=== PATIENT | female | born 1965 | race Caucasian/White ===

== ENCOUNTER 2020-05-06 08:20 | Emergency (ER) | payer BC, SELFPAY ==
--- NOTE | ~2020-05-06 | CT_ITS ---
EXAMINATION: CTA chest PE protocol EXAM DATE: 05/06/2020 10:27 INDICATION: dyspnea dyspnea, COVID+ today. TECHNIQUE: Spiral CTA of the chest (pulmonary arteries) was performed with 100 cc Omnipaque 350 intr avenous contrast injection. Images were acquired during the pulmonary arterial phase. Coronal maxi mum intensity projection 3D-reconstructions were created by the technologist on dedicated workstation . Axial, coronal and sagittal reformatted images were reviewed. The dose-length product (DLP) for t his examination was 271.88 mGy-cm. The exposure was tailored according to patient size (auto mA exp osure control), and iterative reconstruction (ASIR) was used as additional dose reduction technique. There is no prior study for comparison. FINDINGS: Pulmonary arteries are well opacified and without intraluminal filling defects. No thora cic aortic dissection. There is basilar linear atelectasis. No groundglass opacities. There are no pleural or pericardial effusions. Tracheobronchial tree is patent. There is no mediastinal, hilar or axillary lymphadenopathy. There is no pneumothorax. Heart normal in size. No evidence of co ronary arterial calcification. Upper abdomen is unremarkable. There is thoracic spondylosis withou t osteoblastic or osteolytic lesions identified. IMPRESSION: 1. Linear by basilar atelectasis. 2. No pulmonary emboli or groundglass opacities. Reviewed, dictated and finalized at location A. 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
--- NOTE | ~2020-05-06 | XR_ITS ---
EXAMINATION: XR chest 1V portable DATE: 05/06/2020 08:43 INDICATION: Chest pain. TECHNIQUE: A single frontal view of the chest was obtained. COMPARISON: Chest 2 views 05/14/2011 FINDINGS: There is mild atelectasis in the lower lung zones. There is a small left pleural effusion. No pneumothorax. The heart size is normal. IMPRESSION: 1. Small left pleural effusion. 2. Mild atelectasis in the lower lung zones. Reviewed, dictated and finalized at location B. 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
[2020-05-06 08:20] VITALS: BP 140/84; PULSE 89; RESP 15; TEMP 37.3; O2SAT 97
--- NOTE | 2020-05-06 08:23 | ECG_ITS ---
Measurements Intervals [place] Rate: 80 P: 31 VT: 163 QRS: 16 QRSD: 96 T: 32 QT: 366 QTc: 423 Interpretive Statements SINUS RHYTHM INCOMPLETE RIGHT BUNDLE BRANCH BLOCK BORDERLINE T WAVE ABNORMALITY- ANTERIOR LEADS BORDERLINE ECG Electronically Signed On 05-06-2020 8:32:46 CASING FLUSHER by Kingsley Tucker D.O.
--- NOTE | 2020-05-06 08:29 | ED.AMS ---
HPI - Altered Mental Status General Chief Complaint: Weakness Stated Complaint: unresponsive Time Seen by Provider: 05/06/20 08:23 Source: patient and family Mode of arrival: wheelchair Limitations: altered mental status History of Present Illness HPI narrative: 55-year-old woman comes in today complaining of weakness, achiness, and diarrhea that started 2 days ago. Patient states that she has had no fever, vomiting, cough or chest pain however she has had some shortness of breath more recently. She states that she took some laxatives for constipation problem as well. She has no history of cardiac or lung disease. MD complaint: altered mental status Timing confirmed by: spouse Severity: moderate Consistency of symptoms: waxing and waning Associated symptoms: chills, nausea/vomiting and diarrhea Related Data Home Medications Medication Instructions Recorded Confirmed escitalopram oxalate 20 mg PO DAILY 05/06/20 05/06/20 Allergies Allergy/AdvReac Type Severity Reaction Status Date / Time Sulfa (Sulfonamide Allergy Unknown Verified 10/13/19 14:27 Antibiotics) Review of Systems Constitutional: Constitutional: Reports chills, Reports fatigue, Denies fever(s) and Reports weakness Eyes: Eyes: Denies change in vision and Denies photophobia ENT: Denies dysphagia, Denies nasal congestion and Denies sore throat Cardiovascular: Cardiovascular: Denies chest pain and Denies radiating jaw, neck or arm pain Respiratory: Respiratory: Denies cough, Reports dyspnea and Denies wheezing Gastrointestinal: Gastrointestinal: Denies abdominal pain, Reports constipation, Reports diarrhea, Reports nausea and Denies vomiting Genitourinary: Genitourinary: Denies nocturia and Denies dysuria Musculoskeletal: Musculoskeletal: Denies arthralgias and Denies joint swelling Integumentary/Breasts: Skin/Breast: Denies pruritus, Denies erythema and Denies rash Neurologic: Denies vertigo, Denies dizziness and Denies syncope Hematologic/Lymphatic: Hematologic/Lymphatic: Denies easy bleeding and Denies easy bruising Allergic/Immunologic: Allergic/Immunologic: Denies lip swelling and Denies throat swelling PMFSH Past Medical History Medical History Anxiety Social History Social History (Updated 05/06/20 @ 09:45 by Yang Gerard MD) Smoking status: Never smoker Substance use: never Living arrangements: with family Exam Const: General: healthy appearing Nutritional Appearance: obese Limitations: altered mental status Other: Mild acute distress. Somnolent. HENMT: Ears: external ears normal, TM's normal bilaterally and EAC's normal General nose exam: Normal nares present Face and sinus: normal facial exam Mouth: Yes moist mucous membranes Throat: posterior oropharynx normal Eyes: Conjunctivae: conjunctivae normal Pupils: Equal, round and reactive pupils present EOM: EOMs intact bilaterally Resp: Effort & Inspection: normal respiratory effort, not labored and tachypneic (mildly) Auscultation: clear to auscultation bilaterally, no rales, no rhonchi and no wheezes Cardio: Rate: regular rate Rhythm: regular rhythm Heart sounds: no murmurs GI: GI Palp: Yes Soft to palpation, No Tenderness to palpation present (GI) and No Guarding due to palpation present (GI) Auscultation: normal bowel sounds Skin: General skin exam: normal color, no jaundice and no pallor Rashes: no rashes Neuro: General: patient oriented x3, moves all extremities and no focal motor deficits Cranial nerves: Yes Nystagmus not present Speech: normal speech Gait exam (Neuro): Normal gait present Extrem: General: normal to inspection and no clubbing, cyanosis or edema Psych: Appearance: grossly normal Mental Status: mental status grossly normal Affect: normal affect Attitude: cooperative Thought content: Yes Normal thought content present Course Course Emergency Course: On re-exa
[2020-05-06 08:45] LABS: Hematocrit 37.1 % (35.0-49.0); Hemoglobin 12.5 g/dL (12.0-15.0); Mean Corpuscular HGB Conc 33.7 g/dL (32.0-36.0); Mean Corpuscular Hemoglobin 31.9 pg (27.0-31.0); Mean Corpuscular Volume 94.6 fL (78.0-102.0); Mean Platelet Volume 10.3 fl (9.2-11.8); Platelet Count Result 215 K/mm3 (150-420); Red Blood Count 3.92 M/mm3 (4.20-5.40); Red Cell Distribution Width 12.5 % (11.6-14.4); White Blood Count 3.9 K/mm3 (4.8-10.8)
[2020-05-06 08:47] LABS: Add Urine Microscopic? NO; Appearance Urine Clear (Clear); Bilirubin Urine Negative (Negative); Blood Urine Negative (Negative); Color Urine Yellow (Yellow); Glucose Urine UA Negative (Negative); Ketones Urine Negative (Negative); Leukocyte Esterase Ur Negative LEU/UL (Negative); Nitrate Urine Negative (Negative); Protein Urine Negative (Negative); Specific Grav Ur 1.025 (1.010-1.020); Urobilinogen Urine 0.2 mg/dL (0.2-1.0); pH Urine 5.5 (5.0-8.0)
[2020-05-06 08:56] LABS: Amphetamine Screen Urine Negative (Negative); Barbiturate Screen Urine Negative (Negative); Benzodiazepines Screen Urine Negative (Negative); Cannabinoid Screen Urine Negative (Negative); Cocaine Screen Urine Negative (Negative); Methadone Screen Urine Negative (Negative); Opiate Screen Urine Negative (Negative); Phencyclidine Screen Urine Negative (Negative)
[2020-05-06 09:00] LABS: INR 0.9; Partial Thromboplastin Time 25.1 SEC (23.90-30.70); Prothrombin Time 10.4 Seconds (9.50-12.10)
[2020-05-06 09:01] LABS: Base Excess ABG -0.2 mmol/L (0-2); Carboxyhemoglobin 0.2 % (0-1.5); HCO3 ABG 22.8 mmol/L (23-29); Methemoglobin ABG 0.3 % (0-1.5); Oxygen Content ABG 16.6 %vol (16.0-22.0); Oxygen Saturation ABG 96.7 % (95-97); Oxyhemoglobin 96.2 % (94-100); Reduced Hemoglobin 3.3 % (0-1.5); Total Hemoglobin 12.2 g/dL; pH ABG 7.47 (7.35-7.45)
[2020-05-06 09:02] LABS: Device ROOM AIR; Modified Allen's Test Pass; Site Drawn LEFT RADIAL
[2020-05-06 09:02] LABS: D Dimer 1.57 mg/L (0.19-0.50)
[2020-05-06 09:06] LABS: Band Neutrophils Percent 0 % (0-6); Lymphocytes Absolute Manual 1.05 K/mm3 (1.1-4.5); Lymphocytes Percent Manual 27 % (18-44); Monocytes Absolute Manual 0.54 K/mm3 (0.1-0.90); Monocytes Percent Manual 14 % (3-9); Neutrophils Percent Manual 59 % (46-73); Platelet Estimate Adequate (Adequate); Total Cells Counted 100
[2020-05-06 09:06] LABS: Influenza Control Valid (Valid)
[2020-05-06 09:07] LABS: SARS-CoV-2 Ag Positive (Negative)
[2020-05-06 09:07] LABS: Alanine Aminotransferase 21 U/L (14-59); Albumin Level 3.9 g/dL (3.4-5.0); Alkaline Phosphatase 81 U/L (46-116); Anion Gap 5 mmol/L (8-16); Aspartate Amino Transferase 16 U/L (15-37); Bilirubin,Total 0.4 mg/dL (0.00-1.00); Blood Urea Nitrogen 9 mg/dL (7-18); Calcium 8.7 mg/dL (8.5-10.1); Carbon Dioxide 28 mmol/L (21-32); Chloride 103 mmol/L (98-108); Estimated Glomerular Filt Rate > 60; Glucose 97 mg/dL (70-99); Osmolality Calculated 280 mOsm/kg (285-295); Potassium 3.8 mmol/L (3.5-5.1); Sodium 136 mmol/L (136-145); Total Protein 7.6 g/dL (6.4-8.2); Troponin I 7.1 ng/L (0.00-60.4)
[2020-05-06 09:12] LABS: Lactic Acid Reflex 1.1 mmol/L (0.4-2.0)
[2020-05-06] MEDS: SODIUM CHLORIDE 0.9% IV 1,000 ML 999 ML IV CONT (09:16)
[2020-05-06 09:19] LABS: CRP 0.6 mg/dL (0.0-0.9)
[2020-05-06 09:24] LABS: BNP 33 pg/mL (0-100)
[2020-05-06 09:30] LABS: Glucose Point of Care 93 (65-105)
[2020-05-06 10:17] VITALS: BP 127/75; PULSE 77; O2SAT 96
[2020-05-06 11:20] VITALS: BP 131/71; PULSE 71; O2SAT 97
== END 2020-05-06 11:20 | disposition home or self-care (01) ==
PROVIDERS: Emergency Provider Emergency Medicine
DX: U07.1 COVID-19 (principal)
CPT/HCPCS: 36415; 36600; 71045; 71275; 80053; 80307; 81003; 82375; 82805; 83050; 83605; 83880; 84484; 85025; 85380; 85610; 85730; 86140; 87040; 87086; 87426; 87804; 93005; 96360; 96361; 99283; 99284; C9803; J7030; Q9967

== ENCOUNTER 2021-07-26 21:43 | Emergency (ER) | payer BC, SELFPAY ==
--- NOTE | ~2021-07-26 | XR_ITS ---
EXAMINATION: XR hand LT min 3V EXAM DATE: 07/26/2021 22:11 INDICATION: Swelling/pain x5days @distal 2nd, 3rd metacarpals after pop. TECHNIQUE: Left hand frontal, lateral and oblique projections obtained and reviewed. There is no carolyn or study for comparison. FINDINGS: Left metacarpal bones are unremarkable. There are no acute fractures or dislocations ident ified. There is no subcutaneous gas. There is soft tissue swelling over the metacarpal heads. Ther e are no radiopaque foreign bodies. IMPRESSION: 1. XR hand LT min 3V exam without acute osseous findings. 2. Soft tissue swelling. Reviewed, dictated and finalized at location A.
[2021-07-26 21:59] VITALS: BP 115/71; PULSE 64; RESP 18; TEMP 36.1; O2SAT 97
[2021-07-26] MEDS: IBUPROFEN 400 MG TABLET 800 MG PO (22:17)
--- NOTE | 2021-07-26 22:25 | ED.UPPEXIN ---
HPI - Extremity Injury (Upper) General Chief Complaint: Extremity Injury, Upper Stated Complaint: left hand pain Time Seen by Provider: 07/26/21 21:45 Source: patient and RN notes reviewed Mode of arrival: ambulatory Limitations: no limitations History of Present Illness complaint: injury to: left and hand Onset (ago): day(s) (5) Other Extremity Injury: Left: hand Place: home Severity: mild Severity scale (1-10): 3 Relieving factors: immobilization Exacerbating factors: movement of extremity Context: direct blow Associated symptoms: heard/felt popping sensation Related Data Home Medications Medication Instructions Recorded Confirmed escitalopram oxalate 20 mg PO DAILY 05/06/20 07/26/21 Allergies Allergy/AdvReac Type Severity Reaction Status Date / Time Sulfa (Sulfonamide Allergy Unknown Verified 10/13/19 14:27 Antibiotics) Review of Systems Review of Systems: All systems reviewed & are unremarkable except as noted in HPI and below PMFSH Past Medical History Medical History Anxiety Sprain and strain of left hand Social History Social History Smoking status: Never smoker Substance use: never Exam Const: General: no acute distress Nutritional Appearance: well nourished Orientation/consciousness: patient oriented x3 Limitations: no limitations HENMT: Head: normal to inspection Ears: external ears normal, TM's normal bilaterally and EAC's normal General nose exam: Normal external nose present and Normal nares present Mouth: Yes moist mucous membranes Eyes: Conjunctivae: conjunctivae normal Pupils: Equal, round and reactive pupils present EOM: EOMs intact bilaterally Neck: Neck: normal visual inspection and no lymphadenopathy Resp: Effort & Inspection: normal respiratory effort Auscultation: clear to auscultation bilaterally Cardio: Rate: regular rate Rhythm: regular rhythm GI: GI Palp: Yes Soft to palpation and No Tenderness to palpation present (GI) Auscultation: normal bowel sounds : General: Yes bladder normal to palpation and Yes no CVA tenderness Back/Spine/Pelvis: Back: no CVA tenderness Skin: General skin exam: normal color Rashes: no rashes Neuro: General: patient oriented x3, moves all extremities, no meningeal signs, no focal motor deficits and CN's II-XI intact bilaterally Extrem: General: no pedal edema Other: minimally swollen left hand dorsum MCP 3rd and 4th. no acute redness or deformity. Psych: Appearance: grossly normal and well kempt Mental Status: mental status grossly normal Thought content: Yes Normal thought content present Course Course Emergency Course: Pt was stable in the ED. less pain-ful. Reevaluation(s) Date: 07/26/21 Time: 22:13 Vital Signs Vital signs: Vital Signs Temperature 36.1 C L 07/26/21 21:59 Pulse Rate 64 07/26/21 21:59 Respiratory Rate 18 07/26/21 21:59 Blood Pressure 115/71 07/26/21 21:59 Pulse Oximetry 97 07/26/21 21:59 Temperature 36.1 C L 07/26/21 21:59 Pulse Rate 64 07/26/21 21:59 Respiratory Rate 18 07/26/21 21:59 Blood Pressure 115/71 07/26/21 21:59 Pulse Oximetry 97 07/26/21 21:59 MDM - Extremity Injury (Upper) Differential Diagnosis Differential diagnosis: Likely finger sprain Medical Records Attestation: I reviewed the patient's medical records. Lab Data Attestation: I reviewed the patient's lab results. Imaging Data Radiologist's impression: see the report Critical Care Time Critical Care Time Critical Care Time: No Total Critical Care Time: 0 Discharge Plan Discharge Clinical Impression: Sprain and strain of left hand Patient Disposition: Home, Self-Care Condition: Stable Instructions: Antibiotic Form, How to Use a Sling (ED) Additional Instructions: Home. May RTC prn. PMD in 1-2 days. Rx below. Moist heat. Prescriptions: New
[2021-07-26 23:41] VITALS: BP 120/74; PULSE 74; RESP 18; O2SAT 98
== END 2021-07-26 23:44 | disposition home or self-care (01) ==
PROVIDERS: Emergency Provider Emergency Medicine; PCP Family Medicine
DX: S63.92XA Sprain of unspecified part of left wrist and hand, initial encounter (principal)
CPT/HCPCS: 73130; 99283; A4565; A9270

== ENCOUNTER 2021-10-17 07:15 | Outpatient (CLI) | payer BC, SELFPAY ==
--- NOTE | ~2021-10-17 | US_ITS ---
EXAMINATION: US pelvic complete w TV DATE: 10/17/2021 08:22 INDICATION: Pelvic pain Comparison:No prior studies for comparison. TECHNIQUE: Multiple transabdominal and endovaginal sonographic images of the pelvis performed. FINDINGS: The uterus is surgically absent. The left ovary is not identified. Right ovary is normal me asuring 12 x 6 x 9 mm.. No free fluid. IMPRESSION: 1. Unremarkable pelvic ultrasound post hysterectomy. Reviewed, dictated and finalized at location A.
--- NOTE | ~2021-10-17 | MM_ITS ---
EXAMINATION: MM scrn wendy implant BI w sly HISTORY: Screening mammogram TECHNIQUE: Craniocaudal and mediolateral oblique 3-D tomosynthesis images with implant displacement a nd synthetic 2-D images were generated. Craniocaudal and mediolateral oblique views of the breasts wi thout implant displacement were obtained using full field digital mammography. CAD analysis was submi tted and interpreted. COMPARISON: No prior mammogram is available for comparison at this institution. BREAST PARENCHYMAL COMPOSITION: There are scattered areas of fibroglandular density. FINDINGS: There is no evidence of suspicious mass, calcification, or architectural distortion to sugg est malignancy in either breast. There has been no suspicious interval change. There are bilateral duggan bpectoral silicone implants. IMPRESSION: 1. No mammographic evidence of malignancy. 2. Recommend routine screening mammography in one year. BI-RADS Category 1: Negative Reviewed, dictated and finalized at location A.
== END 2021-10-17 07:16 | disposition home or self-care (01) ==
LOC: CHSIMG 07:16
PROVIDERS: PCP Family Medicine; Visit Provider Obstetrics & Gynecology
DX: Z12.31 Encounter for screening mammogram for malignant neoplasm of breast (principal); R35.0 Frequency of micturition; R10.2 Pelvic and perineal pain
CPT/HCPCS: 76830; 76856; 77063; 77067

== ENCOUNTER 2021-11-25 07:55 | Outpatient (CLI) | payer BC, SELFPAY ==
--- NOTE | ~2021-11-25 | CT_ITS ---
EXAMINATION: CT abdomen pelvis w con DATE: 11/25/2021 08:30 INDICATION: Left groin pain. TECHNIQUE: Computed tomography (CT) of the abdomen and pelvis was performed with 100 mL Omnipaque 350 intravenous contrast. Automated exposure control and iterative reconstruction technique were employe d. The dose-length product was 343.99 mGy-cm. COMPARISON: Chest CT 05/06/2020 FINDINGS: The visualized portions of the lung bases demonstrated mild atelectasis. No pleural effusio n. The heart size is normal. No pericardial effusion. There are bilateral breast implants. The liver is normal. The gallbladder is contracted. There are gallstones in the gallbladder. 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 The spleen, pancreas, adrenal glands, and right kidn ey are normal. There is an 11 mm cyst in left kidney. There are bilateral inguinal hernias containing fat. The appendix is normal. There is an umbilical hernia containing fat. There are no pathologicall y enlarged lymph nodes. There is no free intraperitoneal fluid. There is mild thoracolumbar spondylos is. IMPRESSION: 1. Bilateral inguinal hernias containing fat. 2. Umbilical hernia containing fat. Reviewed, dictated and finalized at location A.
== END 2021-11-25 07:56 | disposition home or self-care (01) ==
LOC: CHSIMG 07:58
PROVIDERS: PCP Family Medicine
DX: K46.9 Unspecified abdominal hernia without obstruction or gangrene (principal)
CPT/HCPCS: 74177; Q9967

== ENCOUNTER 2022-01-30 20:41 | Emergency (ER) | payer BC, SELFPAY ==
--- NOTE | 2022-01-30 20:58 | ED.EXTPRO ---
HPI - Extremity Problem General Chief complaint: Extremity Injury, Lower Stated complaint: L ankle pain Time Seen by Provider: 01/30/22 20:57 Source: patient and RN notes reviewed Mode of arrival: wheelchair Limitations: no limitations History of Present Illness HPI Narrative: patient states she woke up this morning in her left ankle was in extreme pain. She is having trouble putting any weight on it. She does not recall any injury. She denies any trauma. She has not recently been on any antibiotics. MD Complaint: extremity pain and extremity swelling Onset (ago): hour(s) (14) Pain Consistency: constant Location: left and lower extremity Quality: burning, aching and constant Radiation: none Relieving factors: nothing Exacerbating factors: nothing Associated symptoms: denies other symptoms Related Data Home Medications Medication Instructions Recorded Confirmed escitalopram oxalate 20 mg tablet 20 mg PO DAILY 05/06/20 01/30/22 Allergies Allergy/AdvReac Type Severity Reaction Status Date / Time Sulfa (Sulfonamide Allergy Unknown Rash Verified 01/30/22 21:09 Antibiotics) egg Allergy Nausea Verified 01/30/22 21:09 Pork/Porcine Containing Allergy Vomiting Verified 01/30/22 21:09 Products Review of Systems Review of Systems: All systems reviewed & are unremarkable except as noted in HPI and below Constitutional: Constitutional: Denies chills and Denies fever(s) PMFSH Past Medical History Medical History (Updated 01/30/22 @ 21:44 by Terrance Steinberg MD) Anxiety GERD (gastroesophageal reflux disease) Sprain and strain of left hand Surgical History Surgical History (Updated 01/30/22 @ 21:36 by Terrance Steinberg MD) H/O oophorectomy single History of bilateral tubal ligation History of tonsillectomy History of total abdominal hysterectomy Social History Social History Smoking status: Never smoker Substance use: never Exam Const: General: healthy appearing, no acute distress and alert Nutritional Appearance: well nourished Orientation/consciousness: patient oriented x3 Limitations: no limitations HENMT: Head: normal to inspection Ears: external ears normal Eyes: Conjunctivae: conjunctivae normal Pupils: Equal, round and reactive pupils present EOM: EOMs intact bilaterally Neck: Neck: normal visual inspection Resp: Effort & Inspection: normal respiratory effort Auscultation: clear to auscultation bilaterally Cardio: Rate: regular rate Rhythm: regular rhythm GI: GI Palp: Yes Soft to palpation and No Tenderness to palpation present (GI) Auscultation: normal bowel sounds Back/Spine/Pelvis: Cervical Spine: cervical ROM normal Thoracic/Lumbar Spine: thoraco-lumbar ROM normal Skin: General skin exam: normal color Rashes: no rashes Neuro: General: patient oriented x3, moves all extremities, no focal motor deficits and CN's II-XI intact bilaterally Speech: normal speech Gait exam (Neuro): Normal gait present Extrem: General: normal exam except as noted Right lower extremity: ankle Details: tenderness Location: of the achilles tendon (severe), swelling Details: posteriorly ( over the Achilles tendon), abnormal ROM Details: pain with active ROM Details: with plantar flexion and with dorsiflexion and pain with passive ROM Details: with plantar flexion and with dorsiflexion and achilles tendon exam abnormal Details: tenderness to palpation of achilles tendon; Mccormick Test normal Psych: Mental Status: mental status grossly normal Affect: normal affect Attitude: cooperative Course Vital Signs Vital signs: Vital Signs Temperature 36.8 C 01/30/22 21:17 Pulse Rate 81 01/30/22 21:17 Respiratory Rate 18 01/30/22 21:17 Blood Pressure 109/60 01/30/22 21:17 Pulse Oximetry 97 01/30/22 21:17 Oxygen Delivery Room Air 01/30/22 21:17 Temperature 36.8 C 01/30/22 21:17 Pulse Rate 81 01/30/22 21:17 Respira
[2022-01-30 21:17] VITALS: BP 109/60; PULSE 81; RESP 18; TEMP 36.8; O2SAT 97
--- NOTE | 2022-01-30 21:53 | PC.NURSE ---
SPLINT PLACED ON LEFT FOOT [id number]
[2022-01-30] MEDS: methylPREDNISolone SOD SUCC 125 MG VIAL IM (21:56)
[2022-01-30 23:32] VITALS: BP 130/60; PULSE 66; RESP 18; TEMP 36.8; O2SAT 98
== END 2022-01-31 00:17 | disposition home or self-care (01) ==
PROVIDERS: Emergency Provider Emergency Medicine; PCP Family Medicine
DX: M76.62 Achilles tendinitis, left leg (principal)
CPT/HCPCS: 96372; 99283; J2930

== ENCOUNTER 2024-03-08 22:54 | Emergency (ER) | payer BC, SELFPAY ==
--- NOTE | ~2024-03-08 | XR_ITS ---
EXAMINATION: XR chest 1V portable DATE: 03/08/2024 23:11 INDICATION: Chest pain. TECHNIQUE: A single frontal view of the chest was obtained. COMPARISON: Chest single view 05/06/2020, CT abdomen and pelvis 11/25/2021 FINDINGS: There is mild elevation of right hemidiaphragm. No pneumonia, pleural effusion, or pneumoth orax. The heart size is normal. IMPRESSION: 1. No acute cardiopulmonary disease. Reviewed, dictated and finalized at location A. [facility] [employer]
[2024-03-08 22:54] VITALS: BP 121/65; PULSE 76; RESP 24; TEMP 36.3; O2SAT 98
[2024-03-08 23:02] VITALS: BP 129/63; PULSE 75; RESP 18; TEMP 36.3; O2SAT 100
--- NOTE | 2024-03-08 23:02 | ECG_ITS ---
Test Date: 2024-03-08 23:01:32 Measurements Intervals [place] Rate: 75 P: 64 [place]: 160 QRS: 58 QRSD: 89 T: 73 QT: 403 QTc: 450 Interpretive Statements SINUS RHYTHM POSSIBLE RIGHT VENTRICULAR CONDUCTION DELAY BORDERLINE T WAVE ABNORMALITY- ANTERIOR LEADS BASELINE ARTIFACT- I, II, III, V2, V4-V6 BORDERLINE ECG No previous ECG available for comparison Electronically Signed On 03-09-2024 05:24:37 MANAGER ETL by Kingsley Tucker D.O.
--- NOTE | 2024-03-08 23:02 | ED.CHESTPAIN ---
HPI - Chest Pain General Chief Complaint: Chest Pain Stated Complaint: chest pain Source: patient Mode of arrival: ambulatory Limitations: no limitations History of Present Illness HPI narrative: 59-year-old female with a history of anxiety, GERD, negative stress test 2 months ago presents to the ED with a 30 minute history of -- acute onset set substernal chest pain which was unprovoked and radiated to the back. She also complains of numbness of left upper extremity. No nausea /vomiting. No shortness of breath. The patient received aspirin and sublingual nitro by EMS without any significant change in the pain. -- The patient is very anxious and shaky patient is a nonsmoker without any history of hypertension, dyslipidemia or family history of coronary artery disease. MD complaint: chest pain Onset (ago): minute(s) ( 30 minutes) Timing of current episode: constant Prior episodes: No Onset: during rest Pain location: substernal Pain radiation: left arm and back Severity: severe Pain scale (0-10): 8 Quality: aching Relieving factors: nothing Exacerbating factors: nothing Risk Factors Coronary artery disease risk factors: none Thoracic aortic dissection risk factors: none Related Data On Oral Contraceptives: No Home Medications Medication Instructions Recorded Confirmed escitalopram oxalate 20 mg tablet 20 mg PO DAILY 05/06/20 03/08/24 Allergies Allergy/AdvReac Type Severity Reaction Status Date / Time Sulfa (Sulfonamide Allergy Unknown Rash Verified 01/30/22 21:09 Antibiotics) egg Allergy Nausea Verified 01/30/22 21:09 Pork/Porcine Containing Allergy Vomiting Verified 01/30/22 21:09 Products Review of Systems Review of Systems: All systems reviewed & are unremarkable except as noted in HPI and below Constitutional: Constitutional: Reports as per HPI and Reports no additional constitutional complaints Eyes: Eyes: Reports as per HPI and Reports no additional eye complaints ENT: Reports system reviewed and no additional complaints, except as documented and Reports as per HPI Cardiovascular: Cardiovascular: Reports as per HPI, Reports no additional cardiovascular complaints, Reports chest pain and Reports radiating jaw, neck or arm pain Respiratory: Respiratory: Reports as per HPI and Reports no additional respiratory complaints Gastrointestinal: Gastrointestinal: Reports as per HPI and Reports no additional gastrointestinal complaints Genitourinary: Genitourinary: Reports no additional female genitourinary complaints and Reports as per HPI Musculoskeletal: Musculoskeletal: Reports no additional musculoskeletal complaints and Reports as per HPI Integumentary/Breasts: Skin/Breast: Reports system reviewed and no additional complaints, except as docu and Reports as per HPI Neurologic: Reports system reviewed and no additional complaints, except as documented and Reports as per HPI Psychiatric: Psychiatric: Reports no additional psychiatric complaints and Reports as per HPI Endocrine: Endocrine: Reports no additional endocrine complaints and Reports as per HPI Hematologic/Lymphatic: Hematologic/Lymphatic: Reports no additional hematologic/lymphatic complaints and Reports as per HPI Allergic/Immunologic: Allergic/Immunologic: Reports no additional allergic/immunologic complaints and Reports as per HPI [facility] Past Medical History Medical History Anxiety GERD (gastroesophageal reflux disease) Sprain and strain of left hand Surgical History Surgical History H/O oophorectomy single History of bilateral tubal ligation History of tonsillectomy History of total abdominal hysterectomy Social History Social History Smoking status: Never smoker Substance use: never Living arrangements: with family Exam Narrative: Vitals are stable oxygen saturation of 100% on room air with a respiratory rate of 18. Const: Orientation/consciousness: patient oriented x3 Other: Anxious with hyperventilation HENMT: Head: normal to inspection Ears: external ears normal Face/Nose/Sinus: Normal external nose present Face and sinus: normal facial exam Mouth: Yes Normal oral and palatal mucosa present Throat: posterior oropharynx normal Eyes: Conjunctivae: conjunctivae normal Pupils: Equal, round and reactive pupils present EOM: EOMs intact bilaterally Direct Ophthalmoscopy: no photophobia Neck: Neck: normal visual inspection, no lymphadenopathy and no meningeal signs Chest: Chest palpation & inspection: normal inspection of the chest Resp: Effort & Inspection: normal respiratory effort Auscultation: clear to auscultation bilaterally Cardio: Rate: regular rate Rhythm: regular rhythm GI: Other: soft. Bowel sounds are present. No tenderness / rigidity /rebound. : General: Yes no CVA tenderness Back/Spine/Pelvis: Back: no CVA tenderness Skin: General skin exam: normal color Rashes: no rashes Wounds: no wounds Neuro: General: patient oriented x3, moves all extremities, no meningeal signs, no focal motor deficits and CN's II-XI intact bilaterally Cranial nerves: Yes Nystagmus not present Speech: normal speech Extrem: General: normal to inspection and no clubbing, cyanosis or edema Psych: Mental Status: mental status grossly normal Affect: Anxious affect present Attitude: cooperative Course Course Emergency Course: Substernal chest pain/ Anxiety-- her symptoms resolved with IV morphine and subsequently IV Ativan. She has remained pain-free throughout her ER stay. patient had a recent negative stress test Vital Signs Vital signs: Vital Signs Temperature 36.3 C L 03/08/24 22:54 Pulse Rate 76 03/08/24 22:54 Respiratory Rate 24 H 03/08/24 22:54 Blood Pressure 121/65 03/08/24 22:54 Pulse Oximetry 98 03/08/24 22:54 Oxygen Delivery Room Air 03/08/24 22:54 Temperature 36.3 C L 03/08/24 23:02 Pulse Rate 63 03/09/24 02:01 Respiratory Rate 18 03/09/24 02:01 Blood Pressure 108/65 03/09/24 02:01 Pulse Oximetry 99 03/09/24 02:01 Oxygen Delivery Room Air 03/09/24 02:01 MDM - Chest Pain MDM Narrative Medical decision making narrative: Chest pain-- patient had serial cardiac enzymes and EKG which do not show any acute findings. Chest x-ray did not show any acute findings. Differential Diagnosis Differential diagnosis: Likely pneumothorax and stable angina Medical Records Data Attestation: I reviewed the patient's medical records. Lab Data Attestation: I reviewed the patient's lab results. 03/08/24 23:05 03/08/24 23:05 Labs: Lab Results 03/08/24 03/09/24 Range/Units 23:05 02:08 WBC 8.5 (4.8-10.8) K/mm3 RBC 3.98 L (4.20-5.40) M/mm3 Hgb 12.8 (12.0-15.0) g/dL Hct 37.5 (35.0-49.0) % MCV 94.2 (78.0-102.0) fL MCH 32.2 H (27.0-31.0) pg MCHC 34.1 (32-36) g/dL RDW 12.7 (11.6-14.4) % Plt Count 266 (150-420) K/mm3 MPV 10.5 (9.2-11.8) fl Immature Gran % (Auto) 0.1 H (0.0-0.0) % Neut % (Auto) 49.2 L (50.0-70.0) % Lymph % (Auto) 38.9 (18.0-42.0) % [place] % (Auto) 9.7 (2.0-11.0) % Eos % (Auto) 1.3 (1.0-6.0) % Baso % (Auto) 0.8 (0.0-1.0) % Lymph # (Auto) 3.29 (1.10-4.50) K/mm3 [place] # (Auto) 0.82 (0.10-0.90) K/mm3 Eos # (Auto) 0.11 (0.02-0.50) K/mm3 Baso # (Auto) 0.07 (0.00-0.10) K/mm3 Abs Immat Gran (auto) 0.01 H (0.00-0.00) K/mm3 Absolute Neuts (auto) 4.16 (1.70-7.20) K/mm3 Absolute Nucleated RBC 0.00 (0.00-0.00) K/mm3 Nucleated RBC % 0.0 (0-0.0) % PT 9.9 (9.50-12.1) Seconds INR 0.9 APTT 25.4 (23.9-30.70) Sec Sodium 141 (136-145) mmol/L Potassium 3.2 L (3.5-5.1) mmol/L Chloride 103 (98-108) mmol/L Carbon Dioxide 25 (21-32) mmol/L Anion Gap 13 H (4-12) mmol/L BUN 14 (7-18) mg/dL Creatinine 0.89 (0.55-1.02) mg/dL Estim Creat Clear Calc 51 ml/min Estimated GFR > 60 (59 - ) Glucose 99 (70-99) mg/dL Calculated Osmolality 292 (285-295) mOsm/kg Calcium 9.4 (8.5-10.1) mg/dL Total Bilirubin 0.4 (0.00-1.00) mg/dL AST 47 H (15-37) U/L ALT 38 (14-59) U/L Alkaline Phosphatase 113 (46-116) U/L Troponin I < 4.0 5.2 (0.00-60.4) ng/L NT-Pro-B Natriuret Pep 110 (0-125) pg/mL Total Protein 7.2 (6.4-8.2) g/dL Albumin 3.6 (3.4-5.0) g/dL Lipase 64 (16-77) U/L ECG Data EKG #1: ECG completion date: 03/09/24 ECG completion time: 23:01 Interpretation: normal sinus rhythm. Normal axis. No ST elevation. EKG #2: ECG completion date: 03/09/24 ECG completion time: 02:04 Interpretation: Repeat EKG- ectopic atrial rhythm. Right ventricular hypertrophy. No ST elevation. Discharge Plan Discharge Clinical Impression: Atypical chest pain, Anxiety Patient Disposition: Home, Self-Care Condition: Stable Instructions: Antibiotic Form, Chest Pain (ED), Anxiety (ED) Patient Language: Sinhala Prescriptions: No Action escitalopram oxalate 20 mg tablet 20 mg PO DAILY Follow-up/Referrals: UNKNOWN,DOCTOR [Primary Care Provider] - Time of Disposition: 02:51
[2024-03-08 23:13] LABS: Basophils Absolute Auto 0.07 K/mm3 (0.00-0.10); Basophils Percent Auto 0.8 % (0.0-1.0); Eosinophils Absolute Auto 0.11 K/mm3 (0.02-0.50); Eosinophils Percent Auto 1.3 % (1.0-6.0); Hematocrit 37.5 % (35.0-49.0); Hemoglobin 12.8 g/dL (12.0-15.0); Immature Granulocyte Absolute 0.01 K/mm3 (0.00-0.00); Immature Granulocyte Percent A 0.1 % (0.0-0.0); Lymphocytes Absolute Auto 3.29 K/mm3 (1.10-4.50); Lymphocytes Percent Auto 38.9 % (18.0-42.0); Mean Corpuscular HGB Conc 34.1 g/dL (32-36); Mean Corpuscular Hemoglobin 32.2 pg (27.0-31.0); Mean Corpuscular Volume 94.2 fL (78.0-102.0); Mean Platelet Volume 10.5 fl (9.2-11.8); Monocytes Absolute Auto 0.82 K/mm3 (0.10-0.90); Monocytes Percent Auto 9.7 % (2.0-11.0); Neutrophils Absolute Auto 4.16 K/mm3 (1.70-7.20); Neutrophils Percent Auto 49.2 % (50.0-70.0); Platelet Count Result 266 K/mm3 (150-420); Red Blood Count 3.98 M/mm3 (4.20-5.40); Red Cell Distribution Width 12.7 % (11.6-14.4); White Blood Count 8.5 K/mm3 (4.8-10.8)
[2024-03-08 23:24] LABS: INR 0.9; Partial Thromboplastin Time 25.4 Sec (23.9-30.70); Prothrombin Time 9.9 Seconds (9.50-12.1)
[2024-03-08 23:31] VITALS: BP 117/68; PULSE 75; RESP 24; O2SAT 100
[2024-03-08 23:31] LABS: Alanine Aminotransferase 38 U/L (14-59); Albumin Level 3.6 g/dL (3.4-5.0); Alkaline Phosphatase 113 U/L (46-116); Anion Gap 13 mmol/L (4-12); Aspartate Amino Transferase 47 U/L (15-37); Bilirubin,Total 0.4 mg/dL (0.00-1.00); Blood Urea Nitrogen 14 mg/dL (7-18); Calcium 9.4 mg/dL (8.5-10.1); Carbon Dioxide 25 mmol/L (21-32); Chloride 103 mmol/L (98-108); Estimated CRCL calculation 51 ml/min; Estimated Glomerular Filt Rate > 60; Glucose 99 mg/dL (70-99); NT Pro B Type Natriuretic Pept 110 pg/mL (0-125); Osmolality Calculated 292 mOsm/kg (285-295); Potassium 3.2 mmol/L (3.5-5.1); Sodium 141 mmol/L (136-145); Total Protein 7.2 g/dL (6.4-8.2)
[2024-03-08] MEDS: ONDANSETRON INJ 4 MG/2 ML VIAL IV PUSH (23:31)
[2024-03-08] MEDS: MORPHINE SULFATE (*CRX) 2 MG/ML INJ IV PUSH (23:31)
[2024-03-08 23:32] LABS: Lipase 64 U/L (16-77); Troponin I < 4.0 ng/L (0.00-60.4)
--- NOTE | 2024-03-08 23:40 | PC.NURSE ---
PATIENT IS VERY ANXIOUS, HYPERVENTILATING. ENCOURAGING PATIENT TO SLOW HER BREATHING DOWN. PATIENT STATES THAT SHE IS DIZZY. NOTIFIED DR JUSTICE
[2024-03-08 23:45] VITALS: BP 115/81; PULSE 69; RESP 26; O2SAT 98
[2024-03-08] MEDS: LORazepam INJ (*CRX) 2 MG/ML VIAL 0.5 MG IV PUSH (23:47)
[2024-03-09] VITALS (12 sets, daily range): BP systolic 91–113; BP diastolic 51–70; PULSE 60–72; RESP 13–27; O2SAT 95–99
--- NOTE | 2024-03-09 | PC.NURSE ---
PATIENT CONTINUES TO HYPERVENTILATE. MEDICATED PER JUN. DR JUSTICE NOTIFIED
--- NOTE | 2024-03-09 00:11 | PC.NURSE ---
PATIENT IS NO LONGER HYPERVENTILATING AFTER RECEIVING ATIVAN. PATIENT REPORTS THAT SHE IS FEELING BETTER AND HER MUSCLES DONT FEEL TIGHT ANYMORE. LAYING BACK ON STRETCHER. RESP EVEN AND UNLABORED. CALL LIGHT IN REACH, FAMILY AT THE BEDSIDE
--- NOTE | 2024-03-09 00:59 | PC.NURSE ---
PATIENT IS CURRENTLY RESTING ON STRETCHER WITH HER EYES CLOSED, RELAXED. RESP EVEN AND UNLABORED. AT HER SIDE. NOTIFIED OF NEXT BLOOD DRAW AND EKG AT 0200. VERBALIZED UNDERSTANDING. CALL LIGHT IN REACH
--- NOTE | 2024-03-09 01:08 | PC.NURSE ---
DR JUSTICE NOTIFIED OF CURRENT BLOOD PRESSURES. PATIENT APPEARS TO BE SLEEPING. RESP EVEN AND UNLABORED.
--- NOTE | 2024-03-09 02:00 | ECG_ITS ---
Test Date: 2024-03-09 02:04:33 Measurements Intervals [place] Rate: 60 P: 125 AL: 159 QRS: 170 QRSD: 88 T: 136 QT: 430 QTc: 431 Interpretive Statements SINUS RHYTHM LIMB LEADS REVERSED POSSIBLE RIGHT VENTRICULAR CONDUCTION DELAY BASELINE ARTIFACT- II, III, AVF BORDERLINE ECG Compared to ECG 03/08/2024 23:01:32 NO SIGNIFICANT CHANGE Electronically Signed On 03-09-2024 05:26:15 [employer] by Kingsley Tucker D.O.
--- NOTE | 2024-03-09 02:02 | PC.NURSE ---
LAB AT THE BEDSIDE. EKG COMPLETED BY OZIEL MCCALL. GIVEN TO DR JUSTICE
[2024-03-09 02:39] LABS: Troponin I 5.2 ng/L (0.00-60.4)
== END 2024-03-09 03:15 | disposition home or self-care (01) ==
PROVIDERS: Emergency Provider Internal Medicine Critical Care Medicine
DX: F41.9 Anxiety disorder, unspecified (principal)
CPT/HCPCS: 36415; 71045; 80053; 83690; 83880; 84484; 85025; 85610; 85730; 93005; 96374; 96375; 99284; J2060; J2270; J2405